=== PATIENT | male | born 1955 | race African-American/Black ===

== ENCOUNTER 2024-05-12 10:44 | Outpatient (CLI) | payer BC | END 2024-05-12 10:45 | disposition home or self-care (01) | LOC: EDBD → CSHRAD 10:44 | PROVIDERS: ATTEND Family Medicine | DX: R05.9 Cough, unspecified (principal) | CPT/HCPCS: 71046 ==

== ENCOUNTER 2024-05-12 14:44 | Emergency (ER) | payer BC ==
[2024-05-12 15:37] LABS: Hematocrit 38.3 % (38.8-50.0); Hemoglobin 12.2 g/dL (13.5-17.5); MDiff Complete? YES; Mean Corpuscular HGB CONC 31.9 g/dL (32.0-36.0); Mean Corpuscular Hemoglobin 28.6 pg (27.0-33.0); Mean Corpuscular Volume 89.9 fL (81.2-95.1); Mean Platelet Volume 12.1 fL (7.4-10.4); Platelet Count 588 10x3/uL (150-450); RBC Distribution Width 15.8 % (11.5-14.5); Red Blood Cell (RBC) Count 4.26 10x6/uL (4.32-5.72); White Blood Cell (WBC) Count 23.1 10x3/uL (3.5-10.5)
[2024-05-12 15:50] LABS: ALT (SGPT) 20 U/L (8-55); AST (SGOT) 45 U/L (5-34); Albumin 3.7 g/dL (3.4-4.8); Alkaline Phosphatase 79 U/L (40-110); Anion Gap 17 mmol/L (10-20); BUN (Urea Nitrogen) 16 mg/dL (8.4-25.7); Bilirubin, Total 0.6 mg/dL (0.2-1.2); Calc. Creatinine Clearance 0 mL/min (70-130); Calcium 8.9 mg/dL (7.8-10.44); Carbon Dioxide 25 mmol/L (23-31); Chloride 105 mmol/L (98-107); Estimated GFR 17; Globulin 3.1 g/dL (2.4-3.5); Glucose 226 mg/dL (80-115); Lipase 17 U/L (8-78); Potassium 3.6 mmol/L (3.5-5.1); Protein, Total 6.8 g/dL (5.8-8.1); Sodium 143 mmol/L (136-145)
[2024-05-12 16:01] LABS: Troponin I 0.706 ng/mL (< 0.028)
[2024-05-12 16:18] LABS: Lymphocytes 27 % (21-51); Metamyelocyte 5 % (0-0); Monocytes 11 % (0-10); Myelocyte 3 % (0-0); Neutrophil 22 % (42-75); Other Cell Types 30; Reactive Lymphocytes 2 % (0-10)
[2024-05-12 16:21] LABS: Giant Platelets SLIGHT HPF (0-5); Large Platelets SLIGHT (None Seen); Platelet Adequacy Comment Appears Increased; Polychromasia SLIGHT = 2-3 cells (100X) (0-2/hpf)
[2024-05-12 17:58] LABS: Bilirubin Neg (Negative); Blood, Urine 10 (Negative); Clarity Clear (Clear); Glucose, Urine (Dipstick) Normal (Negative); Ketone, Urine Negative (Negative); Leukocyte Negative (Negative); Nitrite Negative (Negative); Protein, Urine (Dipstick) 100 mg/dl (Neg-Trace); Specific Gravity, Urine 1.025 (1.005-1.030)
[2024-05-12 18:11] LABS: RBC/HPF 0-3 HPF (0-3)
[2024-05-12 18:12] LABS: Bacteria/HPF 4+ HPF (None Seen); CAUTI Indications for Culture Dysuria,urgency,freq; Mucous/LPF 1+ LPF (<2+); Transitional Epithelial 0-3 HPF (None Seen); Urine Culture Reflex No No; WBC/HPF 0-3 HPF (0-3)
[2024-05-12 19:58] LABS: Troponin I 0.734 ng/mL (< 0.028)
== END 2024-05-12 20:21 ==
LOC: CSHERS 14:44
DX: N17.9 Acute kidney failure, unspecified (principal); E86.0 Dehydration; I21.4 Non-ST elevation (NSTEMI) myocardial infarction; I10 Essential (primary) hypertension
CPT/HCPCS: 36415; 36416; 81001; 83605; 83690; 84484; 87040; 87086; 93005; J0692; J3370; J7030